=== PATIENT | male | born 1945 | race Caucasian/White ===

== ENCOUNTER 2018-09-11 06:39 | Emergency (ER) | payer OTHER, MEDICAID | END 2018-09-11 07:22 | disposition home or self-care (01) | LOC: FTE 06:39 | DX: R05 Cough (principal); I10 Essential (primary) hypertension; E11.9 Type 2 diabetes mellitus without complications; E03.9 Hypothyroidism, unspecified; Z79.84 Long term (current) use of oral hypoglycemic drugs | CPT/HCPCS: 99283 ==